=== PATIENT | female | born 1965 | race Caucasian/White ===

== ENCOUNTER 2022-01-10 06:23 | Inpatient (IN) ==
[2022-01-10] MEDS ORDERED: Ondansetron 4 MG/2 ML VIAL IVP ONE (06:53)
[2022-01-10] MEDS ORDERED: Ketorolac 30 MG/ML VIAL IVP ONE (06:53)
[2022-01-10] MEDS ORDERED: 0.9 % Sodium Chloride 1,000 ML IVC ONE ×2 (06:53→09:08)
[2022-01-10] MEDS ORDERED: Iopamidol - 370 500 ML MLS IVP ONE (07:54)
[2022-01-10 08:03] LABS: Hematocrit 38.7 % (35.3-44.9); Hemoglobin 12.6 g/dL (11.5-15.4); Mean Corpuscular HGB Conc 32.6 g/dL (31.6-35.5); Mean Corpuscular Hemoglobin 25.8 pg (28.0-33.3); Mean Corpuscular Volume 79.1 fL (83.0-100.0); Mean Platelet Volume 10.9 fL (9.4-12.4); Platelet Count 343 K/mcL (140-400); Red Blood Count 4.89 M/mcL (3.82-4.97); Red Cell Distribution Width 13.7 % (11.5-14.5); White Blood Count 19.6 K/mcL (4.3-11.1)
[2022-01-10 08:08] LABS: Adenovirus Not Detected (Not Detect); Bordetella Pertussis Not Detected (Not Detect); Chlamydophila pneumoniae Not Detected (Not Detect); Coronavirus 229E Not Detected (Not Detect); Coronavirus HKU1 Not Detected (Not Detect); Coronavirus NL63 Not Detected (Not Detect); Coronavirus OC43 Not Detected (Not Detect); Human Metapneumovirus Not Detected (Not Detect); Human Rhinovirus/Enterovirus Not Detected (Not Detect); Influenza A Subtype 2009 H1 Not Detected (Not Detect); Influenza B Not Detected (Not Detect); Mycoplasma pneumoniae Not Detected (Not Detect); Parainfluenza Virus 1 Not Detected (Not Detect); Parainfluenza Virus 2 Not Detected (Not Detect); Parainfluenza Virus 3 Not Detected (Not Detect); Parainfluenza Virus 4 Not Detected (Not Detect); Respiratory Syncytial Virus DETECTED (Not Detect); SARS-CoV-2 Not Detected (Not Detect)
[2022-01-10 08:42] LABS: Monocytes # 1.6 K/mcL (0.0-1.3); Neutrophils # 15.7 K/mcL (1.6-8.9)
[2022-01-10 08:43] LABS: Platelet Estimate Normal (Normal)
[2022-01-10 08:44] LABS: Alanine Aminotransferase 21 Units/L (7-52); Albumin 4.3 g/dL (3.5-5.7); Albumin/Globulin Ratio 1.1 (1.1-2.2); Alkaline Phosphatase 99 Units/L (34-104); Amylase < 10 Units/L (29-103); Aspartate Amino Transferase 21 Units/L (13-39); BUN/Creatinine Ratio 23 (6-26); Bilirubin,Direct 0.3 mg/dL (0.0-0.2); Bilirubin,Indirect 0.3 mg/dL (0.0-1.0); Bilirubin,Total 0.6 mg/dL (0.3-1.0); Blood Urea Nitrogen 50 mg/dL (6-20); Calcium 9.2 mg/dL (8.6-10.3); Carbon Dioxide 22 mEq/L (23-29); Chloride 95 mEq/L (98-107); Globulin 3.9 g/dL (2.4-3.5); Glucose 190 mg/dL (70-105); Lipase 27 Units/L (11-82); Osmolality,Calculated 296 (280-300); Potassium 4.2 mEq/L (3.5-5.1); Sodium 134 mEq/L (136-145); Total Protein 8.2 g/dL (6.4-8.9); Troponin I 0.04 ng/mL (< 0.04)
[2022-01-10] MEDS ORDERED: Azithromycin 500 MG in 0.9 % Sodium Chloride 250 ML IVPB ONE (08:47)
[2022-01-10] MEDS ORDERED: Naloxone 0.4 MG/ML INJ IVP PRN (09:08)
[2022-01-10] MEDS ORDERED: Melatonin 3 MG TABLET PO PRN (09:08)
[2022-01-10] MEDS ORDERED: Acetaminophen 325 MG TABLET PO PRN (09:08)
[2022-01-10] MEDS ORDERED: Dextrose Gel 15 GM/37.5 ML TUBE PO PRN ×2 (09:21)
[2022-01-10] MEDS ORDERED: *HR* Dextrose 50 % in Water (Syg) 50 ML SYRINGE IVP PRN (09:21)
[2022-01-10] MEDS ORDERED: D5% in Water 1,000 ML IVC PRN (09:21)
[2022-01-10] MEDS: cefTRIAXone 2,000 MG in 0.9 % Sodium Chloride 20 ML IVP SCH (10:27)
[2022-01-10] MEDS: Insulin LISPRO 300 UNITS/3 ML VIAL SUBQ SCH ×3 (12:02→20:58)
[2022-01-10] MEDS ORDERED: Gabapentin 400 MG CAPSULE PO PRN (12:04)
[2022-01-10] MEDS ORDERED: Gabapentin 100 MG CAPSULE PO SCH ×2 (15:00→21:00)
[2022-01-10] MEDS ORDERED: Preparation H Ointment 57 GM TUBE RC PRN (15:48)
[2022-01-10] MEDS ORDERED: 0.9 % Sodium Chloride 1,000 ML IVC SCH (16:00)
[2022-01-10 17:10] LABS: Bacteria,Urine Few per hpf (None-Few); Bilirubin,Urine Negative (Negative); Blood,Urine Negative (Negative); Budding Yeast,Urine Few per hpf (None Seen); Clarity,Urine Turbid (Clear); Color,Urine Yellow (Yellow); Glucose,Urine (UA) Normal (Normal); Ketones,Urine Trace mg/dL (Negative); Leukocyte Esterase,Urine Large (Negative); Mucus,Urine Few per lpf (None-Few); Nitrite,Urine Negative (Negative); PH,Urine 5.5 pH Units (5.0-8.0); Protein,Urine 70 mg/dL (Neg-Trace); Renal Epithelial Cells,Urine Few per hpf (None-Few); Specific Gravity,Urine 1.027 (1.010-1.025); Squamous Epithelial Cell,Urine Moderate per hpf (None-Few); Transitional Epi Cells,Urine Few per hpf (None-Few); Urobilinogen,Urine Normal (Normal); WBC,Urine 30-50 per hpf (0-3)
[2022-01-10] MEDS: *HR* Heparin 5,000 UNIT/ML VIAL SQ SCH (17:53)
[2022-01-10] MEDS ORDERED: Famotidine 20 MG TABLET PO SCH ×2 (21:00)
[2022-01-10] MEDS: Insulin DETEMIR 100 UNIT/ML X5UNITS SUBQ SCH (21:27)
[2022-01-10] MEDS: hydrOXYzine pamoate 25 MG CAPSULE PO SCH (21:27)
[2022-01-10] MEDS: gemfibroziL 600 MG TABLET PO SCH (21:27)
[2022-01-11] MEDS: *HR* Heparin 5,000 UNIT/ML VIAL SQ SCH (03:46)
[2022-01-11] MEDS: *HR* HYDROcodone/Acet 5/325 mg TABLET PO PRN ×2 (03:47→21:33)
[2022-01-11 04:54] LABS: Basophils % 0.2 %; Eosinophils # 0.1 K/mcL (0.0-0.6); Eosinophils % 0.6 %; Hematocrit 32.4 % (35.3-44.9); Immature Granulocytes % 0.3 % (0-4); Lymphocytes # 1.1 K/mcL (0.6-4.6); Mean Corpuscular HGB Conc 32.7 g/dL (31.6-35.5); Mean Corpuscular Hemoglobin 26.3 pg (28.0-33.3); Mean Corpuscular Volume 80.4 fL (83.0-100.0); Mean Platelet Volume 11.2 fL (9.4-12.4); Monocytes # 0.3 K/mcL (0.0-1.3); Platelet Count 328 K/mcL (140-400); Red Blood Count 4.03 M/mcL (3.82-4.97); Red Cell Distribution Width 14.1 % (11.5-14.5); Segmented Neutrophils % 89.9 %; White Blood Count 15.2 K/mcL (4.3-11.1)
[2022-01-11 05:00] LABS: Hemoglobin 10.6 g/dL (11.5-15.4); Neutrophils # 13.7 K/mcL (1.6-8.9)
[2022-01-11 05:10] LABS: Calcium 8.3 mg/dL (8.6-10.3); Potassium 4.3 mEq/L (3.5-5.1)
[2022-01-11 05:23] LABS: Platelet Estimate Normal (Normal)
[2022-01-11] MEDS: Metoprolol XL (24 HR) Succ 50 MG TAB.ER.24H PO SCH (08:28)
[2022-01-11] MEDS: Cholecalciferol (D-3) 1,000 UNIT (25MCG) TABLET PO SCH (08:29)
[2022-01-11] MEDS: Azithromycin 250 MG TABLET PO SCH (08:29)
[2022-01-11] MEDS: Cyanocobalamin (B-12) 1,000 MCG TABLET PO SCH (08:29)
[2022-01-11] MEDS: Multivit/Ca/Min/Fe/FA 1 TAB TABLET PO SCH (08:29)
[2022-01-11] MEDS: Loratadine 10 MG TABLET PO SCH (08:30)
[2022-01-11] MEDS: cefTRIAXone 2,000 MG in 0.9 % Sodium Chloride 20 ML IVP SCH (08:30)
[2022-01-11] MEDS: Fluticasone Propionate Nasal 50 MCG/SPRAY BOTTLE NS SCH (08:30)
[2022-01-11] MEDS: Insulin DETEMIR 100 UNIT/ML X5UNITS SUBQ SCH ×2 (08:35→21:50)
[2022-01-11] MEDS: gemfibroziL 600 MG TABLET PO SCH ×2 (08:35→21:34)
[2022-01-11] MEDS: Insulin LISPRO 300 UNITS/3 ML VIAL SUBQ SCH ×4 (08:35→21:25)
[2022-01-11] MEDS ORDERED: Metoprolol XL (24 HR) Succ 25 MG TAB.ER.24H PO SCH (09:00)
[2022-01-11] MEDS ORDERED: OMEGA PO SCH (09:00)
[2022-01-11] MEDS ORDERED: FATTY ACIDS PO SCH (09:00)
[2022-01-11] MEDS ORDERED: Acetaminophen 325 MG TABLET PO PRN (11:39)
[2022-01-11] MEDS: Ipratropium/Albuterol Neb 3 ML IH SCH ×3 (11:42→21:00)
[2022-01-11] MEDS: 0.9 % Sodium Chloride 1,000 ML IVC SCH (13:29)
[2022-01-11] MEDS: predniSONE 20 MG TABLET PO SCH (13:30)
[2022-01-11] MEDS: Aspirin Enteric Coated 81 MG Tablet PO SCH (16:53)
[2022-01-11 20:40] LABS: Calcium 8.9 mg/dL (8.6-10.3); Potassium 4.5 mEq/L (3.5-5.1)
[2022-01-11] MEDS ORDERED: amLODIPine 5 MG TABLET PO SCH (21:00)
[2022-01-11] MEDS ORDERED: Famotidine 20 MG TABLET PO SCH (21:00)
[2022-01-11] MEDS: hydrOXYzine pamoate 25 MG CAPSULE PO SCH (21:34)
[2022-01-12] MEDS: Ipratropium/Albuterol Neb 3 ML IH SCH ×4 (03:57→22:09)
[2022-01-12 05:36] LABS: Basophils % 0.2 %; Eosinophils % 0.1 %; Hematocrit 33.9 % (35.3-44.9); Hemoglobin 11.2 g/dL (11.5-15.4); Immature Granulocytes % 0.8 % (0-4); Lymphocytes # 0.8 K/mcL (0.6-4.6); Lymphocytes % 6.2 %; Mean Corpuscular Hemoglobin 26.5 pg (28.0-33.3); Mean Corpuscular Volume 80.3 fL (83.0-100.0); Monocytes # 0.3 K/mcL (0.0-1.3); Monocytes % 2.3 %; Neutrophils # 12.1 K/mcL (1.6-8.9); Platelet Count 362 K/mcL (140-400); Red Blood Count 4.22 M/mcL (3.82-4.97); Red Cell Distribution Width 14.1 % (11.5-14.5); Segmented Neutrophils % 90.4 %; White Blood Count 13.4 K/mcL (4.3-11.1)
[2022-01-12 05:46] LABS: Estimated Average Glucose 220 mg/dl; Hemoglobin A1C 9.3 %
[2022-01-12] MEDS: 0.9 % Sodium Chloride 1,000 ML IVC SCH ×2 (05:57→19:48)
[2022-01-12 06:09] LABS: BUN/Creatinine Ratio 31 (6-26); Blood Urea Nitrogen 54 mg/dL (6-20); Calcium 8.9 mg/dL (8.6-10.3); Carbon Dioxide 19 mEq/L (23-29); Chloride 101 mEq/L (98-107); Chol/HDL Ratio 35.1 (0-4.9); Cholesterol 246 mg/dL (< 200); Glucose 217 mg/dL (70-105); HDL Cholesterol 7 mg/dL (40-59); Magnesium 1.7 mg/dL (1.6-2.6); Osmolality,Calculated 295 (280-300); Potassium 4.5 mEq/L (3.5-5.1); Sodium 132 mEq/L (136-145); Triglycerides 2033 mg/dL (< 150)
[2022-01-12] MEDS: Insulin LISPRO 300 UNITS/3 ML VIAL SUBQ SCH ×4 (08:40→19:47)
[2022-01-12] MEDS: gemfibroziL 600 MG TABLET PO SCH ×2 (08:42→19:41)
[2022-01-12] MEDS: Metoprolol XL (24 HR) Succ 50 MG TAB.ER.24H PO SCH (08:42)
[2022-01-12] MEDS: Cyanocobalamin (B-12) 1,000 MCG TABLET PO SCH (08:42)
[2022-01-12] MEDS: predniSONE 20 MG TABLET PO SCH (08:43)
[2022-01-12] MEDS: Cholecalciferol (D-3) 1,000 UNIT (25MCG) TABLET PO SCH (08:43)
[2022-01-12] MEDS: Loratadine 10 MG TABLET PO SCH (08:43)
[2022-01-12] MEDS: Azithromycin 250 MG TABLET PO SCH (08:44)
[2022-01-12] MEDS: Multivit/Ca/Min/Fe/FA 1 TAB TABLET PO SCH (08:44)
[2022-01-12] MEDS: Aspirin Enteric Coated 81 MG Tablet PO SCH (08:44)
[2022-01-12] MEDS: Fluticasone Propionate Nasal 50 MCG/SPRAY BOTTLE NS SCH (08:45)
[2022-01-12] MEDS: cefTRIAXone 2,000 MG in 0.9 % Sodium Chloride 20 ML IVP SCH (08:59)
[2022-01-12] MEDS: Insulin DETEMIR 100 UNIT/ML X5UNITS SUBQ SCH (09:00)
[2022-01-12] MEDS ORDERED: Bisacodyl 10 MG RECTAL SUPPOSITORY RC ONE (14:55)
[2022-01-12] MEDS: *HR* HYDROcodone/Acet 5/325 mg TABLET PO PRN (19:41)
[2022-01-12] MEDS: hydrOXYzine pamoate 25 MG CAPSULE PO SCH (19:44)
[2022-01-12] MEDS ORDERED: Insulin DETEMIR 100 UNIT/ML X5UNITS SUBQ SCH (21:00)
[2022-01-12] MEDS ORDERED: Famotidine 20 MG TABLET PO SCH (21:00)
[2022-01-12] MEDS ORDERED: amLODIPine 5 MG TABLET PO SCH (21:00)
[2022-01-13] MEDS: Ipratropium/Albuterol Neb 3 ML IH SCH ×2 (03:43→10:12)
[2022-01-13] MEDS: *HR* HYDROcodone/Acet 5/325 mg TABLET PO PRN (06:29)
[2022-01-13] MEDS: gemfibroziL 600 MG TABLET PO SCH (08:11)
[2022-01-13] MEDS: Aspirin Enteric Coated 81 MG Tablet PO SCH (08:11)
[2022-01-13] MEDS: predniSONE 20 MG TABLET PO SCH (08:11)
[2022-01-13] MEDS: Cholecalciferol (D-3) 1,000 UNIT (25MCG) TABLET PO SCH (08:11)
[2022-01-13] MEDS: Metoprolol XL (24 HR) Succ 50 MG TAB.ER.24H PO SCH (08:11)
[2022-01-13] MEDS: Cyanocobalamin (B-12) 1,000 MCG TABLET PO SCH (08:11)
[2022-01-13] MEDS: Multivit/Ca/Min/Fe/FA 1 TAB TABLET PO SCH (08:12)
[2022-01-13] MEDS: Loratadine 10 MG TABLET PO SCH (08:12)
[2022-01-13] MEDS: Fluticasone Propionate Nasal 50 MCG/SPRAY BOTTLE NS SCH (08:12)
[2022-01-13] MEDS: cefTRIAXone 2,000 MG in 0.9 % Sodium Chloride 20 ML IVP SCH (08:12)
[2022-01-13] MEDS: Azithromycin 250 MG TABLET PO SCH (08:12)
[2022-01-13] MEDS: Insulin LISPRO 300 UNITS/3 ML VIAL SUBQ SCH ×2 (08:52→12:13)
[2022-01-13] MEDS: 0.9 % Sodium Chloride 1,000 ML IVC SCH (09:50)
[2022-01-13 10:08] LABS: Basophils # 0.1 K/mcL (0.0-0.2); Basophils % 0.5 %; Eosinophils # 0.2 K/mcL (0.0-0.6); Eosinophils % 1.3 %; Hematocrit 35.2 % (35.3-44.9); Hemoglobin 11.8 g/dL (11.5-15.4); Immature Granulocytes % 3.8 % (0-4); Lymphocytes # 1.8 K/mcL (0.6-4.6); Lymphocytes % 14.5 %; Mean Corpuscular HGB Conc 33.5 g/dL (31.6-35.5); Mean Corpuscular Hemoglobin 26.6 pg (28.0-33.3); Mean Corpuscular Volume 79.5 fL (83.0-100.0); Mean Platelet Volume 10.6 fL (9.4-12.4); Monocytes # 0.9 K/mcL (0.0-1.3); Monocytes % 7.3 %; Platelet Count 404 K/mcL (140-400); Red Blood Count 4.43 M/mcL (3.82-4.97); Red Cell Distribution Width 14.3 % (11.5-14.5); Segmented Neutrophils % 72.6 %; White Blood Count 12.4 K/mcL (4.3-11.1)
[2022-01-13 10:22] LABS: Calcium 9.4 mg/dL (8.6-10.3); Potassium 3.9 mEq/L (3.5-5.1)
[2022-01-13 11:30] VITALS: BP 150/80; PULSE 85; TEMP 97.2; O2SAT 93
== END 2022-01-13 13:20 | disposition home or self-care (01) | DRG 871 ==
LOC: EMEROOARM 06:23 → 3NENU 06:23 → SUATTDRO 09:19 → 3NENU 10:46
PROVIDERS: ADMIT Internal Medicine; ATTEND Internal Medicine